=== PATIENT | male | born 1995 | race Caucasian/White ===

== ENCOUNTER 2018-09-09 00:13 | Emergency (ER) | payer OTHER ==
[~2018-09-09 00:13] MED LIST: MIDAZOLAM 2 MG/2 ML INJ ONE
[2018-09-09] MEDS ORDERED: MIDAZOLAM 2 MG/2 ML INJ IV ONE (00:19)
--- NOTE | 2018-09-09 00:20 | ER Document Report ---
ED General - General Stated Complaint: UNRESPONSIVE Time Seen by Provider: 09/09/18 00:19 Cannot obtain history due to: Intoxicated, Altered mental status Notes: Patient is a 23-year-old male with no past medical history who presents with his significant other with hyperventilation, agitation and acute intoxication. No additional meaningful history is provided by the patient - Related Data Allergies/Adverse Reactions: No Known Drug Allergies Allergy (Verified 09/09/18 00:30) Past Medical History - General Cannot obtain history due to: Intoxicated, Altered mental status - Social History Smoking Status: Unknown if Ever Smoked Frequency of alcohol use: Occasional Drug Abuse: None Lives with: Spouse/Significant other Family History: Reviewed & Not Pertinent Review of Systems - Review of Systems -: Yes ROS unobtainable due to patient's medical condition Physical Exam - Vital signs Vitals: Temp Resp Pulse Ox 98.2 F 22 H 100 09/09/18 00:15 09/09/18 00:15 09/09/18 00:15 Interpretation: Tachycardic, Tachypneic Notes: PHYSICAL EXAMINATION: GENERAL: Agitated, hyperventilating HEAD: Atraumatic, normocephalic. EYES: Pupils equal round and reactive to light, extraocular movements intact, sclera anicteric, conjunctiva are normal. ENT: nares patent, oropharynx clear without exudates. Moderate dry mucous membranes. NECK: Normal range of motion, supple without lymphadenopathy LUNGS: Breath sounds clear to auscultation bilaterally and equal. No wheezes rales or rhonchi. HEART: Regular tachycardia without murmurs ABDOMEN: Soft, nontender, normoactive bowel sounds. No guarding, no rebound. No masses appreciated. EXTREMITIES: Normal range of motion, no pitting or edema. No cyanosis. NEUROLOGICAL: No focal neurological deficits. Moves all extremities spontaneously. PSYCH: Agitated, combative SKIN: Warm, Dry, normal turgor, no rashes or lesions noted. Course - Re-evaluation Re-evalutation: 09/09/18 00:19 Patient presents extremely anxious, hyperventilating, quite agitated, has been drinking heavily tonight and his significant other reports that they got into an argument he suddenly developed a "severe panic attack". Patient did have initial improvement after receiving 2 mg of midazolam IV, began speaking and became less agitated. Continued to hyperventilate thereafter. 2 additional milligrams of midazolam will be administered. No indication for labs or imaging at this point. Initial EKG was sinus tachycardia. Will continue to monitor closely. 09/09/18 00:40 Patient has had a brief period of apnea, desaturated down into the mid 50s. Responded very well to bag valve mask ventilation. Almost immediately woke up, again became quite agitated, moving around the bed rapidly. Again began hyperventilating. At this point I question whether the patient has ingested illicit substances beyond alcohol. 09/09/18 00:52 Patient is becoming extremely agitated again, attempting to get out of the bed, moving around rapidly. Given previous period of apnea and no significant improv ement with midazolam, will give 2 mg of haloperidol. Patient is continually attempting to get out of bed. We will place off restraints. 09/09/18 01:00 Patient continues to intermittently have periods of apnea that respond to sternal rub. This is a very unusual presentation as alternates with periods where the patient is hyperventilating, extremely agitated, is back down and then becomes apneic. Will insert a nasopharyngeal airway. Will continue to monitor closely. 09/09/18 01:51 Patient has removed his nasopharyngeal airway. He has not had any further periods of apnea. He has been resting calmly now for approximately 30 minutes. Will continue to monitor closely. 09/09/18 02:58 Patient is continued to rest comfortably. No further periods of apnea. Continue saturating 97% on room air. Does wake up to loud voice but does not respond to questions. Will continue to allow the patient to rest until he is more clinically sober, able to walk. 09/09/18 03:26 Patient is continued to do very well, has not had any further episodes of apnea. Continues to become more responsive. He was monitored until he is clinically sober, able to walk and tolerate oral fluids without difficulty and then be discharged home. - Vital Signs Vital signs: Temp Pulse Resp BP Pulse Ox 98.2 F 14 96/54 L 97 09/09/18 00:15 09/09/18 03:01 09/09/18 03:01 09/09/18 03:01 - Laboratory Result Diagrams: 09/09/18 00:15 Laboratory results interpreted by me: 09/09/18 09/09/18 00:15 00:15 WBC 12.3 H Salicylates < 1.0 L Acetaminophen < 10 L - EKG Interpretation by Me Additional EKG results interpreted by me: 09/09/18 00:20 Sinus tachycardia, rate 109. No ST elevations or depressions. QTC is 453. Critical Care Note - Critical Care Note Total time excluding time spent on procedures (mins): 40 Comments: Critical care time spent obtaining history from patient or surrogate, development of treatment plan with patient or surrogate, evaluation of patient's response to treatment, examination of patient, ordering and performing treatments and interventions, re-evaluation of patient's condition. Discharge - Discharge Clinical Impression: Apnea, Panic state as acute reaction to stress Alcohol intoxication Qualifiers: Complication of substance-induced condition: uncomplicated Qualified Code(s): F10.920 - Alcohol use, unspecified with intoxication, uncomplicated Condition: Stable Disposition: HOME, SELF-CARE Additional Instructions: You were seen in the emergency department today for being drunk. Being seen in the emergency department after drinking alcohol is a serious indicator that you have a problem with alcohol. Please return to the emergency room immediately if you experience any concerning symptoms including high fevers, severe headache, chest pain, difficulty breathing, abdominal pain, slurred speech, numbness or weakness in your arms or legs, or any other symptom that concerns you.
[2018-09-09] MEDS ORDERED: NORMAL SALINE 1000 ML 1,000 ML IV ONE (00:50)
[2018-09-09] MEDS ORDERED: HALOPERIDOL LACTATE INJ 5 MG/1 ML VIAL ONE (00:50)
[2018-09-09] MEDS ORDERED: HALOPERIDOL LACTATE INJ 5 MG/1 ML VIAL IV ONE (00:50)
[2018-09-09] MEDS ORDERED: ONDANSETRON HCL INJ/PF 4 MG/2 ML SDV ONE (01:05)
[2018-09-09 01:07] LABS: HEMATOCRIT 42.1 % (37.9-51.0); HEMOGLOBIN 14.7 g/dL (13.5-17.0); MEAN CORPUSCULAR HEMOGLOBIN 30.9 pg (27.0-33.4); MEAN CORPUSCULAR VOLUME 88 fl (80-97); PLATELET COUNT 211 10^3/uL (150-450); RED BLOOD COUNT 4.78 10^6/uL (4.35-5.55); WHITE BLOOD COUNT 12.3 10^3/uL (4.0-10.5)
[2018-09-09 01:14] LABS: ALCOHOL 161 mg/dL (NONE DETECTED)
[2018-09-09 01:15] LABS: ACETAMINOPHEN < 10 ug/mL (10-30); SALICYLATE < 1.0 mg/dL (2.0-20.0)
[2018-09-09 02:40] LABS: URINE AMPHETAMINES SCREEN NEGATIVE; URINE BARBITURATES SCREEN NEGATIVE; URINE BENZODIAZEPINES SCREEN UNCONFIRMED POSITIVE; URINE COCAINE SCREEN NEGATIVE; URINE MARIJUANA (THC) SCREEN NEGATIVE; URINE METHADONE SCREEN NEGATIVE; URINE PHENCYCLIDINE SCREEN NEGATIVE
[2018-09-09 03:36] VITALS: BP 106/44
--- NOTE | 2018-09-09 13:58 | EKG REPORT ---
SEVERITY:- OTHERWISE NORMAL ECG - SINUS TACHYCARDIA BORDERLINE RIGHT AXIS DEVIATION : Confirmed by: Robbin Peralta 09-Sep-2018 13:57:48
== END 2018-09-09 03:47 | disposition home or self-care (01) ==
LOC: ER 00:13
DX: F43.0 Acute stress reaction (principal); R06.81 Apnea, not elsewhere classified; F10.120 Alcohol abuse with intoxication, uncomplicated; R00.0 Tachycardia, unspecified; R06.4 Hyperventilation
CPT/HCPCS: 93005; 99285; 96361; 96374; 96375; 36415; 80307 ×4; 85027; 93010; J2250; J1630; J7030